=== PATIENT | male | born 2000 | race Caucasian/White ===

== ENCOUNTER 2022-02-20 20:38 | Emergency (ER) | payer OTHER ==
[2022-02-20 21:44] LABS: HEMOGLOBIN 15.5 gm/dl (14.0-17.5); RED BLOOD COUNT 5.66 M/UL (4.20-5.50); WHITE BLOOD COUNT 8.4 K/UL (4.5-11.0)
[2022-02-20 22:04] LABS: BUN/CREATININE RATIO 15 (0-10)
== END 2022-02-21 00:15 | disposition home or self-care (01) ==
LOC: ER1 20:38
PROVIDERS: Family Medicine
DX: I10 Essential (primary) hypertension (principal); R07.9 Chest pain, unspecified
CPT/HCPCS: 71046; 80053; 82550; 82553; 84484; 85025; 93005; 99285